=== PATIENT | male | born 1955 | race Caucasian/White ===

== ENCOUNTER → 2016-03-10 | Outpatient (CLI) | payer OTHER ==
[~2016-03-10] VITALS: Ht 170.2 cm; Wt 112.8 kg
[~2016-03-10] MED LIST: ASPI1TAB PO; ATOR1TAB21 PO; GLUCPOW24 PO; LIDOCAINE 2% INJ 100 MG/5 ML SDV (FOR ANES.) As Ordered ONE; LISI-542 PO; NS 1,000 ML IV SCH; PROPOFOL 500 MG/50 ML VIAL As Ordered ONE
--- NOTE | 2016-03-10 09:24 | ROOR ---
Patient Name: Terrance Norton Procedure Date: 03/10/2016 8:54 AM Date of : 1955 Age: 60 Room: [facility] Gender: Male Note Status: Finalized Procedure: Colonoscopy to Cecum + Cold Snare Polypectomy Indications: High risk colon cancer surveillance: Personal history of colonic polyps, Last colonoscopy: 2010 Providers: Ge Castellanos MD Referring MD: 1. No Referring Physician 1. No Referring Physician, Admin. Requesting Provider: Medicines: Monitored Anesthesia Care Complications: No immediate complications. Procedure: Pre-Anesthesia Assessment: - The heart rate, respiratory rate, oxygen saturations, blood pressure, adequacy of pulmonary ventilation, and response to care were monitored throughout the procedure. The Colonoscope was introduced through the anus and advanced to the cecum, identified by appendiceal orifice and ileocecal valve. The colonoscopy was performed without difficulty. The patient tolerated the procedure well. The quality of the bowel preparation was excellent. Findings: The perianal and digital rectal examinations were normal. Non-bleeding internal hemorrhoids were found during retroflexion. The hemorrhoids were small and Grade I (internal hemorrhoids that do not prolapse). Scattered small-mouthed diverticula were found in the recto-sigmoid colon, in the sigmoid colon and in the descending colon. The exam was otherwise without abnormality on direct and retroflexion views. A small polyp was found at 30 cm proximal to the anus. The polyp was sessile. The polyp was removed with a cold snare. Resection and retrieval were complete. A small polyp was found in the proximal ascending colon. The polyp was sessile. The polyp was removed with a cold snare. Resection and retrieval were complete. The exam was otherwise without abnormality. Impression: - Non-bleeding internal hemorrhoids. - Diverticulosis in the recto-sigmoid colon, in the sigmoid colon and in the descending colon. - The examination was otherwise normal on direct and retroflexion views. - One small polyp at 30 cm proximal to the anus, removed with a cold snare. Resected and retrieved. - One small polyp in the proximal ascending colon, removed with a cold snare. Resected and retrieved. - The examination was otherwise normal. - The exam was otherwise normal to the cecum. Recommendation: - Patient has a contact number available for emergencies. The signs and symptoms of potential delayed complications were discussed with the patient. Return to normal activities tomorrow. Written discharge instructions were provided to the patient. - Resume previous diet. - Discharge patient to home. - Continue present medications. - Await pathology results. - Telephone GI clinic for pathology results in 1 week. - Repeat colonoscopy in 5 years for surveillance based on pathology results. - Return to referring physician. - The findings and recommendations were discussed with the patient's family. Ge Castellanos MD Ge Castellanos MD 03/10/2016 9:23:59 AM This report has been signed electronically. Number of Addenda: 0 Note Initiated On: 03/10/2016 8:54 AM Estimated Blood Loss: Estimated blood loss: none. Estimated blood loss: none.
[2016-03-10 09:40] VITALS: BP 147/80
== END | disposition home or self-care (01) ==
LOC: M OPP 07:40
PROVIDERS: ATTEND Internal Medicine Gastroenterology
DX: Z12.11 Encounter for screening for malignant neoplasm of colon (principal); K64.0 First degree hemorrhoids; K57.30 Diverticulosis of large intestine without perforation or abscess without bleeding; D12.5 Benign neoplasm of sigmoid colon; D12.2 Benign neoplasm of ascending colon; I10 Essential (primary) hypertension; E78.00 Pure hypercholesterolemia, unspecified; M19.90 Unspecified osteoarthritis, unspecified site; Z79.82 Long term (current) use of aspirin; Z79.899 Other long term (current) drug therapy

== ENCOUNTER → 2016-10-06 | Outpatient (CLI) | payer OTHER ==
[~2016-10-06] MED LIST changes: -LIDOCAINE 2% INJ 100 MG/5 ML SDV (FOR ANES.) As Ordered ONE; -NS 1,000 ML IV SCH; -PROPOFOL 500 MG/50 ML VIAL As Ordered ONE
--- NOTE | 2016-10-10 11:59 | SLEEPCENT ---
DATE OF STUDY: 10/06/2016 ORDERING PROVIDER: Sofiya Dorsey NP Nocturnal polysomnography was performed due to concern for the obstructive sleep apnea syndrome in this patient with a history of excessive somnolence and snoring. 8 hours and 9 minutes of data were reviewed. There were 281 minutes of sleep identified. Sleep latency was prolonged at 97 minutes. Rapid eye movement (REM) sleep was prolonged at 131 minutes. Sleep architecture was poor with fragmentation and poor progression. There were two REM periods appreciated, but overall sleep efficiency was down at 58.2%. The patient's electrocardiogram (EKG) showed a sinus rhythm with PVCs. Average heart rate 48 beats per minute. Electroencephalogram (EEG) showed fairly normal waveforms for awake and sleep. There were no focal events. There were 366 respiratory events identified of 10 seconds in duration or greater for an apnea-hypopnea index of 78. The events were both obstructive and mixed with greater than 50% central events. Respiratory events were not exclusive to sleep stage nor body posture. Arousals from respiratory events occurred 43.7 times per hour, and oxygen desaturations were seen into the 70s. There was some activity in limb leads, but arousals from limb events were few, and remaining measures of sleep physiology were normal. IMPRESSION: Severe complex sleep apnea syndrome (G47.31, G47.33). Apnea-hypopnea index 78. RECOMMENDATION: The patient should be encouraged to return to the sleep disorder center as early as convenient for pressure therapy. Given the occurrence of central events, a bilevel device and backup rate may be necessary. In the interim, alcohol and sedative avoidance should be practiced and caution exercised during the operation of motor vehicles.
== END ==
LOC: M SLEEP 19:54
PROVIDERS: ATTEND Nurse Practitioner Adult Health
DX: G47.30 Sleep apnea, unspecified (principal)

== ENCOUNTER → 2016-10-28 | Outpatient (CLI) | payer OTHER ==
--- NOTE | 2016-11-01 09:48 | SLEEPCENT ---
DATE OF PROCEDURE: 10/28/2016 ORDERED BY: Sofiya Dorsey Nocturnal polysomnography was performed for the titration of pressure therapy in this patient with severe obstructive sleep apnea syndrome, apnea/hypopnea index of 78. For testing, patient was fit with a [employer] Simplus full face mask of medium size, 4 cm of water pressure were applied to the circuit, and the lights were extinguished. 8 hours and 2 minutes of data were reviewed. There were 333 minutes of sleep identified. Sleep latency was prolonged at 33 minutes. Rapid eye movement (REM) latency was short at 40 minutes. Sleep architecture was good with five REM periods. Overall sleep efficiency 70.1% due to a period of wake between 3 and 4 a.m. The patient's EKG showed a sinus rhythm with occasional premature ventricular contractions (PVCs) (epoch 328). EEG showed normal waveforms for awake and sleep. Respiratory events were fully palliated with continuous positive airway pressure (CPAP) at a pressure of 6, with which pressure the patient slept through REM without respiratory event or oxygen desaturation. There was some residual limb activity, but limb movement arousal index was only 4. IMPRESSION: Obstructive sleep apnea syndrome (G47.33). RECOMMENDATION: Nightly use of pressure therapy 6 cm of water.
== END ==
LOC: M SLEEP 19:52
PROVIDERS: ATTEND Nurse Practitioner Adult Health
DX: G47.33 Obstructive sleep apnea (adult) (pediatric) (principal)

== ENCOUNTER → 2022-07-12 | Outpatient (CLI) | payer MEDICARE, OTHER ==
[~2022-07-12] MED LIST changes: -ASPI1TAB PO; +ASPI81TA26 PO; -LISI-542 PO; +LISI5TAB11 PO
[2022-07-12 10:43] LABS: BASO % 0.3 % (0.0-1.0); EOS # 0.2 10^3/uL (0.0-0.5); EOS % 2.4 % (0.0-3.0); HEMATOCRIT 45.3 % (42.0-52.0); HEMOGLOBIN 15.2 g/dl (13.5-17.5); LYMPH # 1.1 10^3/uL (1.5-5.0); MEAN CORPUSCULAR HEMOGLOBIN 30.8 pg (27.0-33.0); MEAN CORPUSCULAR HGB CONC 33.6 g/dl (32.0-36.5); MEAN CORPUSCULAR VOLUME 91.7 fl (80.0-96.0); MONO # 0.5 10^3/uL (0.0-0.8); MONO % 8.1 % (2.0-8.0); NEUTROPHILS # 4.8 10^3/uL (1.5-8.5); NEUTROPHILS % 71.9 % (36.0-66.0); PLATELET COUNT, AUTOMATED 221 10^3/uL (150-450); RED BLOOD COUNT 4.94 10^6/uL (4.30-6.10); WHITE BLOOD COUNT 6.6 10^3/uL (4.0-10.0)
[2022-07-12 11:30] LABS: ALBUMIN 3.8 G/DL (3.2-5.2)
[2022-07-12 11:37] LABS: PERCENT SATURATION 28.7 % (19.7-50.0)
[2022-07-12 11:40] LABS: FERRITIN 92.5 NG/ML (10.5-307.3)
== END ==
LOC: M LAB 09:44
PROVIDERS: ATTEND Orthopaedic Surgery
DX: M25.562 Pain in left knee (principal); M17.12 Unilateral primary osteoarthritis, left knee

== ENCOUNTER → 2022-11-09 | Outpatient (CLI) | payer MEDICARE, OTHER | LOC: M LAB 09:47 | PROVIDERS: ATTEND Urology | DX: C61 Malignant neoplasm of prostate (principal) ==

== ENCOUNTER 2023-04-27 06:46 | Day surgery (SDC) | payer MEDICARE, OTHER ==
[~2023-04-27] VITALS: Ht 167.6 cm; Wt 115.2 kg
[~2023-04-27 06:46] MED LIST changes: +FLOM0.4C39 PO; +HYDR12CA PO; +TRAV04OPD OU
[2023-04-27] MEDS ORDERED: propofoL 200 MG/20 ML VIAL As Ordered ONE (07:02)
[2023-04-27] MEDS ORDERED: LIDOCAINE 2% 100MG/5ML SDV (FOR ANES.) As Ordered ONE (07:02)
[2023-04-27] MEDS: NS 1,000 ML IV ONE (07:14)
[2023-04-27 07:52] VITALS: TEMP 97.8
[2023-04-27 08:07] VITALS: BP 124/70; O2SAT 96
== END 2023-04-27 08:12 | disposition home or self-care (01) ==
LOC: M OPP 06:46
PROVIDERS: ATTEND Internal Medicine Gastroenterology
DX: Z12.11 Encounter for screening for malignant neoplasm of colon (principal); K57.30 Diverticulosis of large intestine without perforation or abscess without bleeding; K64.0 First degree hemorrhoids; Z86.010 Personal history of colon polyps; C61 Malignant neoplasm of prostate; I10 Essential (primary) hypertension; E78.00 Pure hypercholesterolemia, unspecified; Z79.82 Long term (current) use of aspirin; Z79.899 Other long term (current) drug therapy; G47.30 Sleep apnea, unspecified; Z95.0 Presence of cardiac pacemaker

== ENCOUNTER → 2023-08-04 | Outpatient (CLI) | payer MEDICARE, OTHER | LOC: M RAD 14:14 | PROVIDERS: ATTEND Physician Assistant | DX: I65.23 Occlusion and stenosis of bilateral carotid arteries (principal) ==